=== PATIENT | female | born 1945 ===

== ENCOUNTER 2018-07-24 10:59 | Outpatient (CLI) | payer OTHER ==
[~2018-07-24] VITALS: Ht 152.4 cm; Wt 69.9 kg
== END 2018-07-24 14:30 | disposition home or self-care (01) ==
LOC: OFIC 805 10:59
DX: H90.3 Sensorineural hearing loss, bilateral (principal)

== ENCOUNTER 2019-05-28 12:45 | Outpatient (CLI) | payer OTHER ==
[~2019-05-28] VITALS: Ht 152.4 cm; Wt 70.3 kg
== END 2019-05-28 15:22 | disposition home or self-care (01) ==
LOC: OFIC 805 12:45
DX: H90.3 Sensorineural hearing loss, bilateral (principal)